=== PATIENT | female | born 1985 | race Caucasian/White ===

== ENCOUNTER 2019-04-17 08:53 | Emergency (ER) | payer MEDICAID ==
[2019-04-17] MEDS: IBUPROFEN 800 MG TAB PO (09:57)
== END 2019-04-17 10:37 | disposition home or self-care (01) ==
LOC: FTE 08:53
DX: M25.531 Pain in right wrist (principal); R51 Headache; M54.9 Dorsalgia, unspecified
CPT/HCPCS: 73110; 73110-RT; 99283-25